=== PATIENT | male | born 1965 | race Hispanic/Latino ===

== ENCOUNTER 2017-06-27 16:37 | Emergency (ER) | payer OTHER ==
[~2017-06-27] VITALS: Ht 167.6 cm; Wt 74.0 kg
[~2017-06-27 16:37] MED LIST: AMOXICILLIN500 M2 PO; AMOXICILLIN500 MG PO; CIPROFLOXACN500 MG PO; CLARITHROMYC500 MG PO; DEBROX6.5 % AD; PRILOSEC20 MG PO; ZITHROMAX500 MG PO
[2017-06-27 17:47] VITALS: BP 142/88
== END 2017-06-27 18:00 | disposition home or self-care (01) | DRG 605 ==
LOC: ED 16:37
DX: S00.01XA Abrasion of scalp, initial encounter (principal); W20.8XXA Other cause of strike by thrown, projected or falling object, initial encounter; Y93.89 Activity, other specified; Y92.89 Other specified places as the place of occurrence of the external cause